=== PATIENT | male | born 1995 | race Hispanic/Latino ===

== ENCOUNTER 2017-11-15 10:24 | Emergency (ER) | payer SELFPAY ==
[2017-11-15 11:17] LABS: Absolute Monocytes 0.3 K/uL (0.1-1.3); Absolute Neutrophil 3.3 K/uL (1.8-8.0); Basophils % 1.2 % (0-1.3); Eosinophils % 1.2 % (0-4.4); Hematocrit 41.3 % (39.6-49.0); Lymphocytes % 21.9 % (15.3-44.8); MCH 30.5 pg (27.0-35.0); MCV 88.5 fL (80-100); MPV 8.6 fL (7.6-11.3); Monocytes % 6.8 % (3.3-12.3); RBC Red Blood Cell Count 4.67 M/uL (4.33-5.43)
--- NOTE | 2017-11-15 11:24 | RAD REPORT ---
EXAM DESCRIPTION: RAD - Chest Pa And Lat (2 Views) - 11/15/2017 11:10 am CLINICAL HISTORY: Exertional chest pain, shortness of breath COMPARISON: January 2016 TECHNIQUE: PA and lateral views of the chest were obtained. FINDINGS: The lungs are clear. Heart size is normal and central vasculature is within normal limit s. No pleural effusion or pneumothorax seen. No acute bony finding noted. No aortic abnormality. No significant change from comparison exam. IMPRESSION: No acute cardiopulmonary process.
[2017-11-15 11:27] LABS: BUN Blood Urea Nitrogen 11 mg/dL (7-18); Bicarbonate 27 mmol/L (21-32); Glucose Level 86 mg/dL (74-106); Potassium 3.9 mmol/L (3.5-5.1); Sodium Level 141 mmol/L (136-145); Troponin (Emerg Dept Use Only) 0.03 ng/mL (0.0-0.045)
--- NOTE | 2017-11-15 11:59 | EDPHYS ---
Physician Documentation [facility] Name: Stepan Clifton Age: 22 yrs Sex: Male : 1995 Arrival Date: 11/15/2017 Time: 10:30 Bed 15 Private MD: ED Physician Jonnathan Carrera HPI: 11/15 10:38 This 22 yrs old Male presents to ER via EMS with complaints of Chest Pain. rn 10:38 The patient or guardian reports chest pain that is located primarily in the anterior rn chest wall. The pain radiates to the left arm, Associated signs and symptoms: Pertinent negatives: abdominal pain, cough, diaphoresis, lower extremity pain, lower extremity swelling, near syncope, shortness of breath, syncope, vomiting. The chest pain is described as cramp. Duration: The patient or guardian reports multiple episodes, that are intermittent. Modifying factors: The symptoms are alleviated by nothing. the symptoms are aggravated by nothing. Severity of pain: At its worst the pain was mild in the emergency department the pain has improved. The patient has experienced similar episodes in the past. Reports several weeks of intermittent chest cramping, left sided, radiates to left arm and base of skull, lasts for a few minutes, random, not assoc uniquely with exertion or activity. No trauma. Feels like sometimes gets better with massage. . Historical: - Allergies: 10:20 No Known Allergies; rb1 - Home Meds: 10:20 None [Active]; rb1 - PMHx: 10:20 None; rb1 - PSHx: 10:20 Appendectomy; rb1 - Immunization history:: Adult Immunizations up to date. - Social history:: Smoking status: Patient/guardian denies using tobacco. - Ebola Screening: : Patient negative for fever greater than or equal to 101.5 degrees Fahrenheit, and additional compatible Ebola Virus Disease symptoms. - Family history:: not pertinent. - Hospitalizations: : No recent hospitalization is reported. ROS: 10:38 Constitutional: Negative for fever, chills, and weight loss, Eyes: Negative for injury, rn pain, redness, and discharge, Neck: Negative for injury, pain, and swelling, Cardiovascular: Negative for palpitations, and edema, Respiratory: Negative for shortness of breath, cough, wheezing, and pleuritic chest pain, Abdomen/GI: Negative for abdominal pain, nausea, vomiting, diarrhea, and constipation, MS/Extremity: Negative for injury and deformity, Skin: Negative for injury, rash, and discoloration, Neuro: Negative for headache, weakness, and seizure. Exam: 10:38 Constitutional: This is a well developed, well nourished patient who is awake, alert, rn and in no acute distress. Head/Face: Normocephalic, atraumatic. Eyes: Pupils equal round and reactive to light, extra-ocular motions intact. Lids and lashes normal. Conjunctiva and sclera are non-icteric and not injected. Cornea within normal limits. Periorbital areas with no swelling, redness, or edema. Neck: Trachea midline, no thyromegaly or masses palpated, and no cervical lymphadenopathy. Supple, full range of motion without nuchal rigidity, or vertebral point tenderness. No Meningismus. Cardiovascular: Regular rate and rhythm with a normal S1 and S2. No gallops, murmurs, or rubs. Normal PMI, no JVD. No pulse deficits. Respiratory: Lungs have equal breath sounds bilaterally, clear to auscultation and percussion. No rales, rhonchi or wheezes noted. No increased work of breathing, no retractions or nasal flaring. Abdomen/GI: Soft, non-tender, with normal bowel sounds. No distension or tympany. No guarding or rebound. No evidence of tenderness throughout. MS/ Extremity: Pulses equal, no cyanosis. Neurovascular intact. Full, normal range of motion. Equal circumference. Neuro: Awake and alert, GCS 15, oriented to person, place, time, and situation. Cranial nerves II-XII grossly intact. Motor strength 5/5 in all extremities. Sensory grossly intact. Cerebellar exam normal. 11:57 ECG was reviewed by the Attending Physician. rn Vital Signs: 10:20 BP 118 / 71; Pulse 64; Resp 15; Temp 98.4(TE); Pulse Ox 100% on R/A; Weight 65.32 kg; rb1 Height 5 ft. 7 in. (170.18 cm); Pain 8/10; 11:20 BP 103 / 59; Pulse 65; Resp 16; Pulse Ox 100% ; rb1 12:09 BP 105 / 61; Pulse 62; Resp 16; Pulse Ox 99% on R/A; rb1 10:20 Body Mass Index 22.55 (65.32 kg, 170.18 cm) rb1 MDM: 10:30 Patient medically screened. rn 11:57 Differential diagnosis: acute myocardial infarction, acute pericarditis, anxiety, rn coronary artery disease chest wall pain, esophagitis, gastritis, pericarditis, pleurisy, pneumonia, pneumothorax, pulmonary embolus. Data reviewed: vital signs, nurses notes, lab test result(s), EKG, radiologic studies, plain films, and as a result, I will discharge patient. Counseling: I had a detailed discussion with the patient and/or guardian regarding: the historical points, exam findings, and any diagnostic results supporting the discharge/admit diagnosis, lab results, radiology results, the need for outpatient follow up, to return to the emergency department if symptoms worsen or persist or if there are any questions or concerns that arise at home. Special discussion: Based on the patient's history, exam, and Dx evaluation, there is no indication for emergent intervention or inpatient Tx. It is understood by the patient/guardian that if the Sx's persist or worsen they need to return immediately for re-evaluation. I discussed with the patient/guardian in detail that at this point there is no indication for admission to the hospital. It is understood, however, that if the symptoms persist or worsen the patient needs to return immediately for re-evaluation. Based on the history and exam findings, there is no indication for further emergent testing or inpatient evaluation. I discussed with the patient/guardian the need to see the centrifugal station operator for further evaluation of the symptoms. I discussed with the patient/guardian the need to see the primary care provider for further evaluation of the symptoms. ED course: Neg w/u here, neg d-dimer and trop, normal cxr, non-specific ECG, told to f/u with pcp and/or cardiology and return precautions given, recommended outpt ECHO.. 11/15 10:37 Order name: CBC with Diff; Complete Time: : rn 11/15 10:37 Order name: Basic Metabolic Panel; Complete Time: rn 11/15 10:37 Order name: D-Dimer; Complete Time: :11/15 10:37 Order name: EKG; Complete Time: 10:38 rn 11/15 10:37 Order name: XRAY Chest Pa And Lat (2 Views); Complete Time: rn 11/15 10:37 Order name: Troponin (emerg Dept Use Only); Complete Time: 11: rn 11/15 10:37 Order name: IV Start; Complete Time: rn 11/15 10:37 Order name: EKG - Nurse/Tech; Complete Time: : rn EC:57 Rate is 64 beats/min. Rhythm is regular. QRS [place] is Normal. NM interval is normal. QRS rn interval is normal. QT interval is normal. No Q waves. T waves are Normal. No ST changes noted. Clinical impression: Incomplete RBBB. Interpreted by me. Administered Medications: No medications were administered Disposition: 11/15/17 11:59 Discharged to Home. Impression: Chest pain, unspecified, Palpitations. - Condition is Stable. - Discharge Instructions: Nonspecific Chest Pain, Palpitations. - Medication Reconciliation Form, Thank You Letter, Antibiotic Education, Prescription Opioid Use form. - Follow up: Private Physician; When: As needed; Reason: Recheck today's complaints, Re-evaluation by your physician. - Problem is an ongoing problem. - Symptoms have improved. Signatures: Dispatcher [employer] EDMS Jonnathan Carrera MD MD rn Deisy Herman RN RN rb1 Corrections: (The following items were deleted from the chart) 12:12 11:59 11/15/2017 11:59 Discharged to Home. Impression: Chest pain, unspecified; rb1 Palpitations. Condition is Stable. Forms are Medication Reconciliation Form, Thank You Letter, Antibiotic Education, Prescription Opioid Use. Follow up: Private Physician; When: As needed; Reason: Recheck today's complaints, Re-evaluation by your physician. Problem is an ongoing problem. Symptoms have improved. rn
--- NOTE | 2017-11-15 11:59 | ER ---
Nurse's Notes [facility] Name: Stepan Clifton Age: 22 yrs Sex: Male : 1995 Arrival Date: 11/15/2017 Time: 10:30 Bed 15 Private MD: Diagnosis: Chest pain, unspecified;Palpitations Presentation: 11/15 10:20 Presenting complaint: EMS states: Pt. was going up a flight of stairs when he became rb1 SOB and got chest pain in the left side. The pain is repeatable with palpation. EKG was good, BS 82, 100% RA, BP was in the 120's. NKDA, does not take any medications, no history. Pt. does have slurred speech but that is normal for him. Pt. is A \T\ O x 4. Transition of care: patient was not received from another setting of care. Onset of symptoms was November 15, 2017 at 09:55. Risk Assessment: Do you want to hurt yourself or someone else? Patient reports no desire to harm self or others. Initial Sepsis Screen: Does the patient meet any 2 criteria? No. Patient's initial sepsis screen is negative. Does the patient have a suspected source of infection? No. Patient's initial sepsis screen is negative. Care prior to arrival: None. 10:20 Method Of Arrival: EMS: [facility] rb1 10:20 Acuity: KAMAR 3 rb1 Triage Assessment: 10:20 General: Appears in no apparent distress. comfortable, slender, Behavior is calm, rb1 cooperative. Pain: Complains of pain in anterior aspect of left upper chest Pain radiates to back of head Pain currently is 8 out of 10 on a pain scale. Neuro: Level of Consciousness is awake, alert, obeys commands, Oriented to person, place, time, situation, Assistant Film Editor are equal bilaterally Moves all extremities. Gait is steady, Speech is slurred, Normal speech of the pt. per report. Facial symmetry appears normal, Pupils are PERRLA. Cardiovascular: Capillary refill < 3 seconds is brisk in bilateral fingers Rhythm is regular. Respiratory: Airway is patent Respiratory effort is even, unlabored, Respiratory pattern is regular, symmetrical. GI: No signs and/or symptoms were reported involving the gastrointestinal system. : No signs and/or symptoms were reported regarding the genitourinary system. Derm: Skin is dry, Skin is normal, Skin temperature is warm. Musculoskeletal: Range of motion: intact in all extremities. Historical: - Allergies: 10:20 No Known Allergies; rb1 - Home Meds: 10:20 None [Active]; rb1 - PMHx: 10:20 None; rb1 - PSHx: 10:20 Appendectomy; rb1 - Immunization history:: Adult Immunizations up to date. - Social history:: Smoking status: Patient/guardian denies using tobacco. - Ebola Screening: : Patient negative for fever greater than or equal to 101.5 degrees Fahrenheit, and additional compatible Ebola Virus Disease symptoms. - Family history:: not pertinent. - Hospitalizations: : No recent hospitalization is reported. Screenin:20 Abuse screen: Denies threats or abuse. Nutritional screening: No deficits noted. rb1 Tuberculosis screening: No symptoms or risk factors identified. Fall Risk None identified. Assessment: 10:20 General: See triage assessment. rb1 10:20 Pain: Pain began 30 min ago. rb1 11:20 Reassessment: Patient appears in no apparent distress at this time. No changes from rb1 previously documented assessment. 12:09 Reassessment: Patient appears in no apparent distress at this time. Patient and/or rb1 family updated on plan of care and expected duration. Pain level reassessed. Patient is alert, oriented x 3, equal unlabored respirations, skin warm/dry/pink. Family at bedside. Vital Signs: 10:20 BP 118 / 71; Pulse 64; Resp 15; Temp 98.4(TE); Pulse Ox 100% on R/A; Weight 65.32 kg; rb1 Height 5 ft. 7 in. (170.18 cm); Pain 8/10; 11:20 BP 103 / 59; Pulse 65; Resp 16; Pulse Ox 100% ; rb1 12:09 BP 105 / 61; Pulse 62; Resp 16; Pulse Ox 99% on R/A; rb1 10:20 Body Mass Index 22.55 (65.32 kg, 170.18 cm) rb1 ED Course: 10:20 Arm band placed on right wrist. rb1 10:20 Patient has correct armband on for positive identification. Bed in low position. Call rb1 light in reach. Side rails up X 1. Pulse ox on. NIBP on. 10:20 Maintain EMS IV. Dressing intact. Good blood return noted. Site clean \T\ dry. Gauge \T\ rb 1 site: 20 g R AC. Patient maintains SpO2 saturation greater than 95% on room air. 10:30 Patient arrived in ED. rb1 10:30 Jonnathan Carrera MD is Attending Physician. rn 10:33 Triage completed. rb1 10:52 Deisy Herman, RN is Primary Nurse. rb1 10:59 EKG done, by audiovisual technician. reviewed by Jonnathan Carrera MD. at1 11:05 Patient moved to radiology via wheelchair. jb2 11:06 XRAY Chest Pa And Lat (2 Views) In Process Unspecified. EDMS 11:07 Patient moved back from radiology. jb2 12:11 No provider procedures requiring assistance completed. IV discontinued, intact, rb1 bleeding controlled, No redness/swelling at site. Pressure dressing applied. Administered Medications: No medications were administered Outcome: 11:59 Discharge ordered by MD. rn 12:11 Discharged to home ambulatory, with family. rb1 12:11 Condition: stable 12:11 Discharge instructions given to patient, Instructed on discharge instructions, follow up and referral plans. Demonstrated understanding of instructions, follow-up care, Prescriptions given X none 12:12 Patient left the ED. rb1 Signatures: Dispatcher [employer] EDCO Munir Gerardo jb2 Jonnathan Carrera MD MD rn Gonzales, Amanda, cabin man EKG Tat1 Deisy Herman, RN RN rb1
[2017-11-15 12:16] VITALS: BP 105/61; O2SAT 99
--- NOTE | 2017-11-15 15:36 | EKG ---
Test Date: 2017-11-15 Test Time: 10:52:49 Senior Clinical Data Coordinator: CEDRIC MEASUREMENT RESULTS: Intervals: Rate: 64 WV: 154 QRSD: 110 QT: 382 QTc: 394 [place]: P: 1 WV: 154 QRS: 6 T: 40 INTERPRETIVE STATEMENTS: Normal sinus rhythm Incomplete right bundle branch block Borderline ECG No previous ECG available for comparison Electronically Signed On 11-15-17 15:34:37 CDT by Amaury Montenegro
== END 2017-11-15 12:12 | disposition home or self-care (01) ==
LOC: ER 10:24
DX: R00.2 Palpitations (principal)
CPT/HCPCS: 36415; 71046; 80048; 84484; 85025; 85379; 93005; 99284